=== PATIENT | female | born 1970 | race Caucasian/White ===

== ENCOUNTER 2017-01-21 05:43 | Day surgery (SDC) | payer BC ==
[~2017-01-21 05:43] MED LIST: ADVIL PO; COR20 PO; COREG6 PO; HEADACHE RELIEF PO; [UNRECOGNIZED DRUG - OTHER]
== END 2017-01-21 09:20 | disposition home or self-care (01) ==
LOC: SDC 05:43
PROVIDERS: Orthopaedic Surgery
PROC: 3E0R3BZ Introduction of Anesthetic Agent into Spinal Canal, Percutaneous Approach (ICD-10-PCS; 2017-01-21)
PROC: B01BYZZ Fluoroscopy of Spinal Cord using Other Contrast (ICD-10-PCS; 2017-01-21)
PROC: 3E0R33Z Introduction of Anti-inflammatory into Spinal Canal, Percutaneous Approach (ICD-10-PCS; principal; 2017-01-21 08:45)
DX: M51.16 Intervertebral disc disorders with radiculopathy, lumbar region (principal); F41.9 Anxiety disorder, unspecified; Z88.2 Allergy status to sulfonamides; Z98.890 Other specified postprocedural states
CPT/HCPCS: 84703; J2250; J3010; Q9967